=== PATIENT | female | born 1960 | race Caucasian/White ===

== ENCOUNTER 2016-06-16 10:02 | Emergency (ER) | payer OTHER ==
--- NOTE | 2016-06-16 11:22 | DIAGNOSTIC IMAGING REPORT ---
PROCEDURE: XR CHEST 1 VIEW INDICATION: CHEST PAIN TECHNIQUE: Single view chest. 1057 hours COMPARISON: None FINDINGS: Cardiomediastinal contour and central vessels are normal. Clear lungs. No effusions or pneumothorax. Intact osseous structures. Surgical clips in the gallbladder fossa. IMPRESSION: 1. No evidence of acute cardiopulmonary disease.
--- NOTE | 2016-06-16 14:49 | ED NURSING NOTES ---
Clinical Report - Nurses [facility] [address] [place] [address] 06/16/2016 10:03 [id number] TRI[facility] Triage time 10:09. Acuity: LEVEL 3. Chief Complaint: CHEST PAIN. 10:17 06/16/16. Alert. No acute distress. SEPSIS SCREEN: Sepsis Screen. Negative (no infection suspected/documented). Temperature not greater than 38.3 degrees C (101 degrees F). Heart rate not greater than 90. Respiratory rate not greater than 20. SEAN COMA SCORE: [place] Coma Scale: 15- eyes open spontaneously (4); best verbal response- oriented x 4 (5); best motor response- obeys commands (6). --10:17 Leatha Rios R.N. 10:10 06/16/16. BP: 127/92. HR: 76. RR: 18. O2 saturation: 100% on room air. Temp: 97.8 F (oral). Pain level now 8/10. --10:17 Leatha Rios R.N. Acuity: LEVEL 2. --10:18 Leatha Rios R.N. Weight: 61.2 kg stated. Height/Length: 61 inches Per Patient. BMI: 25.5. --10:12 Leatha Rios R.N. Medications Magnesium Oral. --10:13 Leatha Rios R.N. D3 Adult Oral. --10:13 Leatha Rios R.N. Lasix Oral. --10:13 Leatha Rios R.N. Spironolactone Oral. --10:13 Leatha Rios R.N. Allergies No Known Drug Allergy. --10:13 Leatha Rios R.N. Medication/allergy information source: the patient. --10:17 Leatha Rios R.N. History Arrived by private vehicle. Historian: patient. Accompanied by friend. Primary physician (elo ([facility])). ( C/O chest pain, left arm pain, esophogus pain x2 days. LUQ abd pain x1 month. End stage liver disease). Onset. (2 days ago). Treatment TOWER ERECTOR: None. SOCIAL HX: Former smoker, end date 2013. Alcohol use. Patient is a recovering alcoholic. (11/08/2012). History of drug use: marijuana. FALL RISK ASSESSMENT: Fall risk assessment completed. No fall risk identified. NUTRITIONAL RISK ASSESSMENT: The nutritional risk assessment revealed no deficiencies. FUNCTIONAL ASSESSMENT: Functional assessment: no impairments noted. LEARNING NEEDS ASSESSMENT: The learning needs assessment revealed no barriers. SKIN INTEGRITY ASSESSMENT: Skin integrity risk assessment completed. No skin integrity risk identified. --10:17 Leatha Rios R.N. PROBLEMS: Esophageal Varices. Liver failure. --10:15 Leatha Rios R.N. ADDITIONAL SURGERIES: Cholecystectomy. --10:15 Leatha Rios R.N. Interventions ID band on patient. To treatment room. --10:17 Leatha Rios R.N. PHYSICAL ASSESSMENT 10:17 06/16/16. Ambulatory to room. GENERAL / NEURO / PSYCH: Alert. Oriented X 4. Appears in no acute distress. RESPIRATORY: Respirations not labored. CVS: Capillary refill less than 2 seconds. GI / : Abdomen soft. EXTREMITIES: No lower extremity edema. SKIN: Skin is warm and dry. Skin is non-tender. --10:17 Leatha Rios R.N. NURSING PROGRESS NOTES 10:18 06/16/16. The plan of care for this patient has been created. ekg monitor, pulse oximeter and NIBP monitor placed on patient. Patient gowned. Head of bed elevated. Call light placed in reach. Side rails up x 2. Bed placed in lowest position. Brakes of bed on. Patient ready for evaluation- chart flagged. --10:18 Leatha Rios R.N. 10:28 06/16/2016 Site #1 started via IV in the right antecubital space with an 20g angiocath, with aseptic technique and good blood return; one attempt. Blood drawn: rainbow set. Labeled in the presence of the patient and sent to the lab. Saline lock flushed with 10 mL saline. --10:29 Sonia Gomez R.N. 10:29 06/16/16. ( Provider at the bedside). --10:29 Sonia Gomez R.N. 10:41 06/16/2016 GI COCKTAIL WHITE (Simethicone) PO Oral Suspension 30 mL given. Allergies verified and confirmed 5 rights. --10:41 Leatha Rios R.N. EKG time: (1020). EKG was ordered, performed by a tech and shown to the ED physician. --10:44 Ivonne Regan 10:47 06/16/16. Assisted patient to bathroom, to ambulate and back to bed; tolerated well. --10:47 Leatha Rios R.N. 10:53 06/16/16. Patient ID band checked for patient name and birthdate: patient confirmed. Instructions provided to collect clean catch urine and patient verbalized understanding. Clean catch urine collected with return of yellow-colored clear urine; odor is normal; sample sent to lab for urinalysis, culture and drug screen. Specimen labeled in the presence of the patient. --10:53 Leatha Rios R.N. 10:54 06/16/16. BP: 124/65. HR: 80. RR: 16. O2 saturation: 99%. Pain level now 8/10. --10:54 Leatha Rios R.N. Cardiac rhythm: normal sinus rhythm. --10:54 Leatha Rios R.N. Human Resources Benefits Administrator at bedside. --12:08 Sonia Gomez R.N. Assisted patient to bathroom; tolerated well. --13:04 Sonia Gomez R.N. 14:08 06/16/2016 Morphine IVP 4 mg given over 1 minute(s) via site #1. Allergies verified, confirmed 5 rights and sedative warning given to the patient. IV patency established. IV site checked: no pain, redness, or swelling. IV flushed thoroughly pre- and post-medication administration. IVP given by RN. --14:08 Sonia Gomez R.N. Reassessment after medication administered. She has had no adverse reaction. Overall patient status- she states feels better. --14:56 Maryan Whitney R.N. DISPOSITION / DISCHARGE 14:56 06/16/16. BP: 124/76. HR: 77. RR: 16. O2 saturation: 98%. Temp: 98.1 F. Pain level now 05/17. --15:02 Maryan Whitney R.N. 15:02 06/16/2016 Site #1 removed upon discharge. Catheter intact. Manual pressure and bandaid applied. --15:02 Maryan Whitney R.N. Condition at departure: stable. No learning barriers present. Discharge instructions provided and reviewed with the patient. Reviewed medication(s) side effects, precautions, dosing and course information. Prescription(s) given to the patient. Reviewed referral to family practice for followup. Patient verbalized understanding. Written instructions provided in [place]. The patient was discharged home and accompanied by vertical mill operator. She left the Emergency Department ambulatory and via private vehicle. Human Resources Benefits Administrator driving. Medication list reviewed and validated. --15:02 Maryan Whitney R.N. Departure time: 15:02. --15:02 Maryan Whitney R.N. Locked/Released at 06/16/2016 15:03 by Maryan Whitney R.N.
--- NOTE | 2016-06-16 14:49 | ED ORDER SUMMARY ---
..... Patient: ROBBI KELLY OrderSheet [facility] VisitID: [id number] [place] [address] 55y, F Registration Date/Time: 06/16/2016 ORDER SHEET Weight: 61.2 kg (stated) Allergies: No Known Drug Allergy GENERAL ORDERS: Chest 1V Urgent (10:06/16/2016 Dora Allen) (Ack 10:24 TBergley) (10:57 KWilliams R.N.) Founder And Chief Technical Officer (Continuous) (CP) (10:06/16/2016 Dora Allen) (Ack 10:24 TBergley) (10:25 Berta R.N.) CBC w Diff Urgent (10:06/16/2016 Dora Allen) (Ack 10:24 TBergley) (10:30 Сергей R.N.) CMP Urgent (10:06/16/2016 Dora Allen) (Ack 10:24 TBergley) (10:30 SRoberts R.N.) UA-Culture if indicated Urgent (10:06/16/2016 Dora Allen) (Ack 10:24 TBergley) (10:57 Berta R.N.) PT with INR Urgent (10:06/16/2016 Dora Allen) (Ack 10:24 TBergley) (10:30 Сергей R.N.) Pulse oximeter (10:06/16/2016 Dora Allen) (Ack 10:24 TBergley) (10:25 Berta R.N.) EKG - ER Stat (10:06/16/2016 Dora Allen) (10:23 TBergley) Urine Drug Screen Urgent (10:06/16/2016 Dora Allen) (Ack 10:24 TBergley) (10:57 Berta R.N.) Troponin-I Urgent (10:38 06/16/2016 Dora Allen) (10:39 KWmatt R.N.) - (PO challenge (juice or water)) (14:08 06/16/2016 Dora Allen) (14:09 Сергей Meadows) MEDICATION ORDERS: GI Cocktail WHITE PO 30 mL (NOW) (10:38 06/16/2016 Dora Allen) (10:41 Berta R.NJanell) - (14:08 06/16/2016 Dora Allen) (Ack 14:11 Сергей R.N.) IV FLUIDS: IV Saline Lock (10:22 06/16/2016 Dora Allen) (10:30 Сергей R.N.) Morphine IV 4 mg (once now. may repeat once in 15 minutes for pain > 5/10) (13:44 06/16/2016 Dora Allen) (14:08 Сергей R.N.) ORDER SHEET NOTES: [Electronically signed by Maryan Whitney R.N. (15:03 06/16/2016)] [Electronically signed by Олег Moran Dr. (05:26 06/19/2016)] [Electronically locked/signed by Maryan Whitney R.N. (15:03 06/16/2016)]
--- NOTE | 2016-06-16 14:49 | ED ORDER SUMMARY ---
..... Patient: ROBBI KELLY OrderSheet [facility] VisitID: [id number] [place] [address] 55y, F Registration Date/Time: 06/16/2016 ORDER SHEET Weight: 61.2 kg (stated) Allergies: No Known Drug Allergy GENERAL ORDERS: Chest 1V Urgent (10:06/16/2016 Dora Allen) (Ack 10:24 TBergley) (10:57 KWilliams R.N.) Stump Shooter (Continuous) (CP) (10:06/16/2016 Dora Allen) (Ack 10:24 TBergley) (10:25 Berta R.N.) CBC w Diff Urgent (10:06/16/2016 Dora Allen) (Ack 10:24 TBergley) (10:30 Сергей R.N.) CMP Urgent (10:06/16/2016 Dora Allen) (Ack 10:24 TBergley) (10:30 SRoberts R.N.) UA-Culture if indicated Urgent (10:06/16/2016 Dora Allen) (Ack 10:24 TBergley) (10:57 Berta R.N.) PT with INR Urgent (10:06/16/2016 Dora Allen) (Ack 10:24 TBergley) (10:30 Сергей R.N.) Pulse oximeter (10:06/16/2016 Dora Allen) (Ack 10:24 TBergley) (10:25 Berta R.N.) EKG - ER Stat (10:06/16/2016 Dora Allen) (10:23 TBergley) Urine Drug Screen Urgent (10:06/16/2016 Dora Allen) (Ack 10:24 TBergley) (10:57 Berta R.N.) Troponin-I Urgent (10:38 06/16/2016 Dora Allen) (10:39 KWmatt R.N.) - (PO challenge (juice or water)) (14:08 06/16/2016 Dora Allen) (14:09 Сергей Meadows) MEDICATION ORDERS: GI Cocktail WHITE PO 30 mL (NOW) (10:38 06/16/2016 Dora Allen) (10:41 Berta R.NJanell) - (14:08 06/16/2016 Dora Allen) (Ack 14:11 Сергей R.N.) IV FLUIDS: IV Saline Lock (10:22 06/16/2016 Dora Allen) (10:30 Сергей R.N.) Morphine IV 4 mg (once now. may repeat once in 15 minutes for pain > 5/10) (13:44 06/16/2016 Dora Allen) (14:08 Сергей R.N.) ORDER SHEET NOTES: [Electronically signed by Maryan Whitney R.N. (15:03 06/16/2016)] [Electronically signed by Олег Moran Dr. (05:26 06/19/2016)] [Electronically locked/signed by Maryan Whitney R.N. (15:03 06/16/2016)]
--- NOTE | 2016-06-16 14:49 | ED CLINICAL REPORT ---
Clinical Report - Physicians/Mid Levels [facility] [address] [place] [address] 06/16/2016 10:03 Patient: ROBBI KELLY Time Seen: 1015. Arrived- By private vehicle. Historian- patient. HISTORY OF PRESENT ILLNESS Chief Complaint: ABDOMINAL PAIN. This started past several days and is still present. It was abrupt in onset and has been constant but is not gone now. It is described as sharp and burning and it is described as located in the epigastric area and radiating to the chest. At its maximum, severity described as moderate. Modifying factors. Not worsened by anything. Not relieved by anything. The patient has had nausea, loss of appetite, vomiting and diarrhea. (istory of cirrhosis withmeld score of 13. No new or unusual food. No sick contacts. No recent travel or recent antibiotic use). No recent travel. Similar symptoms previously: None. Recent medical care: Not recently seen/assessed. REVIEW OF SYSTEMS No difficulty with urination, fever, difficulty breathing, skin rash or chills. All systems otherwise negative, except as recorded above. PAST HISTORY See nurses notes. Medications: Spironolactone Oral. Lasix Oral. D3 Adult Oral. Magnesium Oral. Allergies: No Known Drug Allergy. SOCIAL HISTORY Never smoker. Alcohol use. (recovering alcoholic). No drug use. No recent travel. Is a local resident. ADDITIONAL NOTES The nursing notes have been reviewed. PHYSICAL EXAM Vital Signs: 06/16/2016 10:10 BP: 127/92. HR: 76. RR: 18. O2 saturation: 100%. Temp: 97.8 F. Oxygen saturation normal. Appearance: Alert. Oriented X3. Patient in mild distress. Eyes: Pupils equal, round and reactive to light. Mild scleral icterus. Eyes normal inspection. ENT: Ears normal. Nose normal. Pharynx normal. Neck: Normal inspection. Neck supple. CVS: Normal heart rate and rhythm. Heart sounds normal. Pulses normal. Respiratory: No respiratory distress. Breath sounds normal. Chest nontender. No rales, rhonchi or wheezes. Abdomen: Soft and nontender. (hyperactive bowel sounds. Negative Melton's. No tenderness at McBurney's. No rebound or guarding). Skin: Skin warm and dry. Normal skin color. No rash. Normal skin turgor. Extremities: Extremities exhibit normal ROM. No lower extremity edema. Neuro: Oriented X 3. No motor deficit. No sensory deficit. LABS, X-RAYS, AND EKG EKG: No acute ischemia. Normal sinus rhythm. Rate: 78. Normal P waves. Normal NISHA. Normal QRS complex. Normal axis. Normal ST and T waves, QT and QTc. Prolonged QTc (494). Prior EKG unavailable. The study has been interpreted contemporaneously. The study has been independently viewed by me. The EKG appears to be a good tracing. Chest X-ray: (PROCEDURE: XR CHEST 1 VIEW INDICATION: CHEST PAIN TECHNIQUE: Single view chest. 1057 hours COMPARISON: None FINDINGS: Cardiomediastinal contour and central vessels are normal. Clear lungs. No effusions or pneumothorax. Intact osseous structures. Surgical clips in the gallbladder fossa. IMPRESSION: 1. No evidence of acute cardiopulmonary disease). Views: PA. The X-rays were independently viewed by me and interpreted by the radiologist. The X-rays were discussed with the radiologist (via pacs). Laboratory Tests: UA-Culture if indicated: (ANA MARÍA: 06/16/2016 10:45) ( MsgRcvd 06/16/2016 11:22) Final results Test Result Flag Units (Reference) URINE COLOR YELLOW URINE APPEARANCE CLEAR URINE GLUCOSE NEGATIVE (NEGATIVE) URINE BILIRUBIN NEGATIVE (NEGATIVE) URINE KETONE NEGATIVE (NEGATIVE) URINE SPECIFIC GRAVITY 1.010 (1.010-1.030) URINE PH 5.5 (5.0-8.0) URINE PROTEIN NEGATIVE (NEGATIVE) URINE UROBILINOGEN 1.0 EU/dL (0.2-1.0) URINE NITRITE NEGATIVE (NEGATIVE) URINE BLOOD NEGATIVE (NEGATIVE) URINE LEUK ESTERASE NEGATIVE (NEGATIVE) URINE RBC NONE SEEN rbc/hpf (0-1) URINE WBC 0-1 wbc/hpf (0-1) URINE EPITHELIAL CELLS 0-1 EPI/hpf (0-5) URINE BACTERIA NONE SEEN (NONE SEEN) URINE COMMENT CULT NOT INDICATED URINE CULTURES ARE SET-UP BASED ON THE FOLLOWING CRITERIA:POSITIVE NITRITEPOSITIVE LEUKOCYTE ESTERASEGREATER THAN 10 WHITE BLOOD CELLSMODERATE (2+) OR GREATER BACTERIA CBC w Diff: (ANA MARÍA: 06/16/2016 10:28) ( [facility] 06/16/2016 10:46) Final results Test Result Flag Units (Reference) WHITE BLOOD COUNT 9.7 K/uL (4.5-11.5) RED BLOOD COUNT 4.69 M/uL (4.00-5.20) HEMOGLOBIN 15.1 gm/dL (12.0-16.0) HEMATOCRIT 45.1 % (36.0-46.0) MEAN CELL VOLUME 96 fL (80-100) MEAN CORPUSCULAR HGB 32 pg (26-34) MEAN CORPUSCULAR HGB CONC 33 g/dL (31-37) RED CELL DISTRIBUTION WIDTH 15.6 H % (11.6-14.8) PLATELET COUNT 119 L K/uL (150-400) NEUTROPHIL % 52.3 % (50-75) LYMPH % 28.0 % (25-40) MONO % 15.6 H % (3-14) EOSINOPHIL % 3.3 % (0-4) BASOPHIL % 0.8 % (0-2) PT with INR: (ANA MARÍA: 06/16/2016 10:28) ( [facility] 06/16/2016 11:04) Final results Test Result Flag Units (Reference) INR 1.1 (0.8-1.2) Low Intensity Therapy: INR 1.5-2.0 PT range 18.5-23.1Mod.Intensity Therapy: INR 2.0-3.0 PT range 23.1-31.5High Intensity Therapy: INR 2.5-3.5 PT range 27.4-35.5High Intensity Therapy 2: INR 3.0-4.0 PT range 31.5-39.3 Urine Drug Screen: (ANA MARÍA: 06/16/2016 10:45) ( [facility] 06/16/2016 11:13) Final results Test Result Flag Units (Reference) AMPHETAMINE/METHAMPHETAMINE NEGATIVE (NEGATIVE) BARBITURATE NEGATIVE (NEGATIVE) BENZODIAZEPINE NEGATIVE (NEGATIVE) CANNABINOID POSITIVE H (NEGATIVE) COCAINE NEGATIVE (NEGATIVE) ECSTASY NEGATIVE (NEGATIVE) METHADONE NEGATIVE (NEGATIVE) OPIATE NEGATIVE (NEGATIVE) The urine drug screen is a qualitative screening test fordrug overdose and abuse. All screen results should beconsidered as presumptive.Drugs screened for are as follows:BenzodiazepinesCocaineAmphetamines/MetamphetaminesTHC (Tetrahydrocannabinol)OpiatesBarbituratesEcstasyMethadonePositive results are unconfirmed. For confirmation, notifythe lab for the specimen to be sent to the reference lab.All confirmations must be performed by a differentmethodology.The ingestion of natural herbal and plant productscontaining Ephedra/Ephedra metabolites can produce in urineone or more substances capable of cross reacting withamphetamine/methamphetamine immunoassays. These testsprovide a preliminary result only. A more specificalternative chemical method must be used to obtain aconfirmed analytical result. CMP: (ANA MARÍA: 06/16/2016 10:28) ( MsgRcvd 06/16/2016 11:12) Final results Test Result Flag Units (Reference) GLUCOSE 91 mg/dL (70-110) BUN 9 mg/dL (7-18) CREATININE 0.8 mg/dL (0.6-1.3) Estimated GFR >60 mL/min Estimated GFR- >60 mL/min Note: Persistent reduction over 3 months in eGFR<60 mL/min/1.73 m2 defines CKD. Patients with eGFR values>=60 mL/min/1.73 m2 may also have CKD if evidence ofpersistent proteinuria. Additional information may be foundat www.kidney.org. SODIUM 137 mmol/L (136-145) POTASSIUM 3.3 L mmol/L (3.5-5.1) CHLORIDE 100 mmol/L (98-107) CARBON DIOXIDE 24 mmol/L (21-32) CALCIUM 9.5 mg/dL (8.5-10.1) TOTAL PROTEIN 7.1 g/dL (6.4-8.2) ALBUMIN 3.2 L g/dL (3.3-5.0) BILIRUBIN, TOTAL 2.8 H mg/dL (0.0-1.0) ALKALINE PHOSPHATASE 216 H U/L (46-116) AST (SGOT) 61 H U/L (15-37) ALT (SGPT) 37 U/L (12-78) TROPONIN I <0.05 L ng/mL (0.00-1.5) TROPONIN REFERENCE RANGE:<0.1 NEGATIVE0.1-1.5 INDETERMINANT>1.5 POSITIVE . PROGRESS AND PROCEDURES Course of Care: the patient is a pleasant 55 her old female with past medical history significant for alcohol-induced cirrhosis presented for a vaginal epigastric abdominal pain. Patient is resting in bed and in a mild amount of distress however does not appear toxic. Differential diagnosis at this time includes acute bronchitis, urinary tract infection, gastritis, or biliary colic. Patient will be evaluated with laboratory studieshere in the emergency department as well as given a GI cocktail for symptoms that are potentiallyreflux in nature. Patient is agreeable to treatment plan. Patient's workup is unremarkable for any acute abnormalities. Patient with chronic liver disease and laboratory studies consistent with this. INR is noted to be normal at 1.1. Patient's meld score was calculated. Patient with improved meld score. reports MELD score of 13 recently. Is 11 today. Because the patient's improved symptoms while here in the emergency department and passing a by mouth challenge, do not fill patient is admitted to the hospital or require further emergency department workup/evaluation. Patient is currently resting in bed and in no acute distress. Head discussion with the patient as well as her friend who is at the bedside per patient's request in regards to her workup here in the emergency department couldn't diagnosis, home care, follow-up, and return precautions. All questions have been answered. The patient expressed understanding of these instructions and was agreeable to them. Of note, do not feel imaging is warranted at this time. Patient is resting in bed and in no acute distress. No acute findings noted on patient's laboratory workup and abdominal exam is noted to be unremarkable. Don't feel patient has a surgical abdomen. Disposition: Discharged. Condition: good. CLINICAL IMPRESSION Acute epigastric abdominal pain. Moderate nausea with vomiting. Atypical chest pain .12 lead EKG performed. Hypokalemia (acute mild). INSTRUCTIONS Warnings: GENERAL WARNINGS: Return or contact your physician immediately if your condition worsens or changes unexpectedly, if not improving as expected, or if other problems arise. SPECIFICALLY, return if you develop pain, fever, vomiting, the inability to keep fluids down, blood in vomitus, blood in diarrhea, fainting or lightheadedness. Your Current Medications: CONTINUE TAKING THE FOLLOWING MEDICATIONS: D3 Adult Oral. Lasix Oral. Magnesium Oral. Spironolactone Oral. Prescription Medications: Zofran (orally disintegrating tablets) 4 mg: take 1 orally every 8 hours as needed for nausea and vomiting. Dispense ten (10). No refill. Substitution is permissible. Oxycodone 5 mg tablets: take 1 orally every 6 hours as needed for pain. Dispense fifteen (15). No refill. Potassium Chloride 20 mEq: take 1 orally every 12 hours - Dispense thirty (30) No refills. Follow-up: Return to the emergency department as needed. Follow up with your doctor in three days. Reason for referral: recheck today's concerns. Summary of care provided to patient via paper. Screening today revealed the patient's blood pressure to be in the normal range. The patient should follow up with a primary care provider for blood pressure management. Understanding of the discharge instructions verbalized by patient. (Electronically signed by Олег Moran Dr. 06/19/2016 5:26)
--- NOTE | 2016-06-16 14:49 | ED NURSING NOTES ---
Clinical Report - Nurses Formerly [facility] [address] [place] [address] 06/16/2016 10:03 [id number] TRI[facility] Triage time 10:09. Acuity: LEVEL 3. Chief Complaint: CHEST PAIN. 10:17 06/16/16. Alert. No acute distress. SEPSIS SCREEN: Sepsis Screen. Negative (no infection suspected/documented). Temperature not greater than 38.3 degrees C (101 degrees F). Heart rate not greater than 90. Respiratory rate not greater than 20. SEAN COMA SCORE: [place]ork Coma Scale: 15- eyes open spontaneously (4); best verbal response- oriented x 4 (5); best motor response- obeys commands (6). --10:17 Leatha Rios R.N. 10:10 06/16/16. BP: 127/92. HR: 76. RR: 18. O2 saturation: 100% on room air. Temp: 97.8 F (oral). Pain level now 8/10. --10:17 Leatha Rios R.N. Acuity: LEVEL 2. --10:18 Leatha Rios R.N. Weight: 61.2 kg stated. Height/Length: 61 inches Per Patient. BMI: 25.5. --10:12 Leatha Rios R.N. Medications Magnesium Oral. --10:13 Leatha Rios R.N. D3 Adult Oral. --10:13 Leatha Rios R.N. Lasix Oral. --10:13 Leatha Rios R.N. Spironolactone Oral. --10:13 Leatha Rios R.N. Allergies No Known Drug Allergy. --10:13 Leatha Rios R.N. Medication/allergy information source: the patient. --10:17 Leatha Rios R.N. History Arrived by private vehicle. Historian: patient. Accompanied by friend. Primary physician (elo ([facility])). ( C/O chest pain, left arm pain, esophogus pain x2 days. LUQ abd pain x1 month. End stage liver disease). Onset. (2 days ago). Treatment SOLE TACKER: None. SOCIAL HX: Former smoker, end date 2013. Alcohol use. Patient is a recovering alcoholic. (11/08/2012). History of drug use: marijuana. FALL RISK ASSESSMENT: Fall risk assessment completed. No fall risk identified. NUTRITIONAL RISK ASSESSMENT: The nutritional risk assessment revealed no deficiencies. FUNCTIONAL ASSESSMENT: Functional assessment: no impairments noted. LEARNING NEEDS ASSESSMENT: The learning needs assessment revealed no barriers. SKIN INTEGRITY ASSESSMENT: Skin integrity risk assessment completed. No skin integrity risk identified. --10:17 Leatha Rios R.N. PROBLEMS: Esophageal Varices. Liver failure. --10:15 Leatha Rios R.N. ADDITIONAL SURGERIES: Cholecystectomy. --10:15 Leatha Rios R.N. Interventions ID band on patient. To treatment room. --10:17 Leatha Rios R.N. PHYSICAL ASSESSMENT 10:17 06/16/16. Ambulatory to room. GENERAL / NEURO / PSYCH: Alert. Oriented X 4. Appears in no acute distress. RESPIRATORY: Respirations not labored. CVS: Capillary refill less than 2 seconds. GI / : Abdomen soft. EXTREMITIES: No lower extremity edema. SKIN: Skin is warm and dry. Skin is non-tender. --10:17 Leatha Rios R.N. NURSING PROGRESS NOTES 10:18 06/16/16. The plan of care for this patient has been created. security monitor, pulse oximeter and NIBP monitor placed on patient. Patient gowned. Head of bed elevated. Call light placed in reach. Side rails up x 2. Bed placed in lowest position. Brakes of bed on. Patient ready for evaluation- chart flagged. --10:18 Leatha Rios R.N. 10:28 06/16/2016 Site #1 started via IV in the right antecubital space with an 20g angiocath, with aseptic technique and good blood return; one attempt. Blood drawn: rainbow set. Labeled in the presence of the patient and sent to the lab. Saline lock flushed with 10 mL saline. --10:29 Sonia Gomez R.N. 10:29 06/16/16. ( Provider at the bedside). --10:29 Sonia Gomez R.N. 10:41 06/16/2016 GI COCKTAIL WHITE (Simethicone) PO Oral Suspension 30 mL given. Allergies verified and confirmed 5 rights. --10:41 Leatha Rios R.N. EKG time: (1020). EKG was ordered, performed by a tech and shown to the ED physician. --10:44 Ivonne Regan 10:47 06/16/16. Assisted patient to bathroom, to ambulate and back to bed; tolerated well. --10:47 Leatha Rios R.N. 10:53 06/16/16. Patient ID band checked for patient name and birthdate: patient confirmed. Instructions provided to collect clean catch urine and patient verbalized understanding. Clean catch urine collected with return of yellow-colored clear urine; odor is normal; sample sent to lab for urinalysis, culture and drug screen. Specimen labeled in the presence of the patient. --10:53 Leatha Rios R.N. 10:54 06/16/16. BP: 124/65. HR: 80. RR: 16. O2 saturation: 99%. Pain level now 8/10. --10:54 Leatha Rios R.N. Cardiac rhythm: normal sinus rhythm. --10:54 Leatha Rios R.N. Edge Bander Operator at bedside. --12:08 Sonia Gomez R.N. Assisted patient to bathroom; tolerated well. --13:04 Sonia Gomez R.N. 14:08 06/16/2016 Morphine IVP 4 mg given over 1 minute(s) via site #1. Allergies verified, confirmed 5 rights and sedative warning given to the patient. IV patency established. IV site checked: no pain, redness, or swelling. IV flushed thoroughly pre- and post-medication administration. IVP given by RN. --14:08 Sonia Gomez R.N. Reassessment after medication administered. She has had no adverse reaction. Overall patient status- she states feels better. --14:56 Maryan Whitney R.N. DISPOSITION / DISCHARGE 14:56 06/16/16. BP: 124/76. HR: 77. RR: 16. O2 saturation: 98%. Temp: 98.1 F. Pain level now 05/17. --15:02 Maryan Whitney R.N. 15:02 06/16/2016 Site #1 removed upon discharge. Catheter intact. Manual pressure and bandaid applied. --15:02 Maryan Whitney R.N. Condition at departure: stable. No learning barriers present. Discharge instructions provided and reviewed with the patient. Reviewed medication(s) side effects, precautions, dosing and course information. Prescription(s) given to the patient. Reviewed referral to family practice for followup. Patient verbalized understanding. Written instructions provided in Mozambican. The patient was discharged home and accompanied by computer customer support specialist. She left the Emergency Department ambulatory and via private vehicle. Edge Bander Operator driving. Medication list reviewed and validated. --15:02 Maryan Whitney R.N. Departure time: 15:02. --15:02 Maryan Whitney R.N. Locked/Released at 06/16/2016 15:03 by Maryan Whitney R.N.
--- NOTE | 2016-06-19 05:26 | ED MAR SUMMARY ---
..... Medication Administration Record [facility] [address] [place] [address] Patient: ROBBI KELLY Visit ID: [id number] 55y, F Weight: 61.2 kg Height/Length: 61 in BMI: 25.5 ALLERGIES: No Known Drug Allergy Given 10:41 06/16/2016 Leatha Rios RJanellNJanell Medication Administered: GI COCKTAIL WHITE [PO] (SIMETHICONE), Dose: 30 mL Oral Suspension PO. Medication Ordered: GI Cocktail WHITE PO 30 mL (NOW). Given 14:08 06/16/2016 Sonia Gomez RSherrell Medication Administered: MORPHINE [IVP], Dose: 4 mg IVP over 1 minute(s), Site: #1 right AC. Medication Ordered: Morphine IV 4 mg (once now. may repeat once in 15 minutes for pain > 5/10).
--- NOTE | 2016-06-19 05:26 | ED DISCHARGE INSTRUCTIONS ---
Patient: ROBBI KELLY General Instructions [facility] VisitID: [id number] [place] [address] 55y, F Registration Date/Time: 06/16/2016 Acute epigastric abdominal pain. Moderate nausea with vomiting. Atypical chest pain .12 lead EKG performed. Hypokalemia (acute mild). INSTRUCTIONS Warnings: GENERAL WARNINGS: Return or contact your physician immediately if your condition worsens or changes unexpectedly, if not improving as expected, or if other problems arise. SPECIFICALLY, return if you develop pain, fever, vomiting, the inability to keep fluids down, blood in vomitus, blood in diarrhea, fainting or lightheadedness. Your Current Medications: CONTINUE TAKING THE FOLLOWING MEDICATIONS: D3 Adult Oral. Lasix Oral. Magnesium Oral. Spironolactone Oral. Prescription Medications: Zofran (orally disintegrating tablets) 4 mg: take 1 orally every 8 hours as needed for nausea and vomiting. Dispense ten (10). No refill. Substitution is permissible. Oxycodone 5 mg tablets: take 1 orally every 6 hours as needed for pain. Dispense fifteen (15). No refill. Potassium Chloride 20 mEq: take 1 orally every 12 hours - Dispense thirty (30) No refills. Follow-up: Return to the emergency department as needed. Follow up with your doctor in three days. Reason for referral: recheck today's concerns. Summary of care provided to patient via paper. Screening today revealed the patient's blood pressure to be in the normal range. The patient should follow up with a primary care provider for blood pressure management. Understanding of the discharge instructions verbalized by patient. ADDITIONAL INFORMATION Abdominal Pain, Unknown Cause (Female) The exact cause of your abdominal (stomach) pain is not certain. This does not mean that this is something to worry about, or the right tests were not done. Everyone likes to know the exact cause of the problem, but sometimes with abdominal pain, there is no clear-cut cause, and this could be a good thing. The good news is that your symptoms can be treated, and you will feel better. Your condition does not seem serious now; however, sometimes the signs of a serious problem may take more time to appear. For this reason,it is important for you to watch for any new symptoms, problems,or worsening of your condition. Over the next few days, the abdominal pain may come and go, or be continuous. Other common symptoms can include nausea and vomiting. Sometimes it can be difficult to tell if you feel nauseous, you may just feel bad and not associate that feeling with nausea. Constipation, diarrhea, and a fever may go along with the pain. The pain may continue even if treated correctly over the following days. Depending on how things go, sometimes the cause can become clear and may require further or different treatment. Additional evaluations, medications, or tests may be needed. Home care Your health care provider may prescribe medications for pain, symptoms, or an infection. Follow the health care provider's instructions for taking these medications. General care Rest until your next exam. No strenuous activities. Try to find positions that ease discomfort. A small pillow placed on the abdomen may help relieve pain. Something warm on your abdomen (such as a heating pad) may help, but be careful not to burn yourself. Diet Do not force yourself to eat, especially if having cramps, vomiting, or diarrhea. Water is important so you do not get dehydrated. Soup may also be good. Sports drinks may also help, especially if they are not too acidic. Make sure you don't drink sugary drinks as this can make things worse. Take liquids in small amounts. Do not guzzle them. Caffeine sometimes makes the pain and cramping worse. Avoid dairy products if you have vomiting or diarrhea. Don't eat large amounts at a time. Wait a few minutes between bites. Eat a diet low in fiber (called a low-residue diet). Foods allowed include refined breads, white rice, fruit and vegetable juices without pulp, tender meats. These foods will pass more easily through the intestine. Avoid whole-grain foods, whole fruits and vegetables, meats, seeds and nuts, fried or fatty foods, dairy, alcohol and spicy foods until your symptoms go away. Follow-up care Follow up with your health care provider as instructed, or if your pain does not begin to improve in the next 24 hours. When to seek medical care Seek prompt medical care if any of the following occur: Pain gets worse or moves to the right lower abdomen New or worsening vomiting or diarrhea Swelling of the abdomen Unable to pass stool for more than three days Fever of 100.4F (38C) or higher, or as directed by your healthcare provider. Blood in vomit or bowel movements (dark red or black color) Jaundice (yellow color of eyes and skin) Weakness, dizziness Chest, arm, back, neck or jaw pain Unexpected vaginal bleeding or missed period Call 911 Call emergency services if any of the following occur: Trouble breathing Confusion Fainting or loss of consciousness Rapid heart rate Seizure Chest Pain, Uncertain Cause Chest pain can happen for a number of reasons. Sometimes the cause can not be determined. If yourcondition does not seem serious, and your pain does not appear to be coming from your heart, your doctor may recommend watching it closely. Sometimes the signs of a serious problem take more time to appear. Therefore, watch for the warning signs listed below. Home care After your visit, follow these recommendations: Rest today and avoid strenuous activity. Take any prescribed medicine as directed. Follow-up care Follow up with your doctor or this facility as instructed or if you do not start to feel better within 24 hours. Call 911 Get immediate medical attention if any of the following occur: A change in the type of pain: if it feels different, becomes more severe, lasts longer, or begins to spread into your shoulder, arm, neck, jaw or back Shortness of breath or increased pain with breathing Weakness, dizziness, or fainting Rapid heart beat Get prompt medical attention Call your doctor right away if any of the following occur: Cough with dark colored sputum (phlegm) or blood Fever of 100.4F(38C) or higher, or as directed by your health care provider Swelling, pain or redness in one leg Hypokalemia Hypokalemia means a low level of potassium in the blood. This most often occurs in patients who take diuretics (water pills). It can also occur due to severe vomiting or diarrhea. A mild case usually causes no symptoms. It is only found with blood testing. More severe potassium loss causes generalized weakness, muscle or abdominal cramping, heart palpitations (rapid or irregular heartbeats) and low blood pressure. Home Care: 1) Take any potassium supplements prescribed. 2) Eat foods rich in potassium. The highest amount is found in artichoke, baked potatoes, spinach, cantaloupe, honeydew melon, cod, halibut, salmon, and scallops. White, red, or navas beans are also very good sources. A modest amount is found in orange juice, bananas, carrots, and tomato juice. 3) Certain types of diuretics (water pills), such as Lasix (furosemide), require that you take potassium supplements for as long as you take the diuretic pills. If you are taking a diuretic, discuss the need for potassium supplements with your doctor. Follow Up with your doctor for a repeat blood test within the next week or as advised by our staff. Get Prompt Medical Attention if any of the following occur: -- Increased weakness -- Feeling dizzy -- Irregular heartbeat, extra beats or very fast heart rate -- Fainting spell Ondansetron Oral disintegrating tablet What is this medicine? ONDANSETRON (on ETHEL se harsh) is used to treat nausea and vomiting caused by chemotherapy. It is also used to prevent or treat nausea and vomiting after surgery. How should I use this medicine? These tablets are made to dissolve in the mouth. Do not try to push the tablet through the foil backing. With dry hands, peel away the foil backing and gently remove the tablet. Place the tablet in the mouth and allow it to dissolve, then swallow. While you may take these tablets with water, it is not necessary to do so. Talk to your customer service specialist regarding the use of this medicine in children. Special care may be needed. What side effects may I notice from receiving this medicine? Side effects that you should report to your doctor or health acute care certified nursing assistant as soon as possible: allergic reactions like skin rash, itching or hives, swelling of the face, lips, or tongue breathing problems dizziness fast or irregular heartbeat feeling faint or lightheaded, falls fever and chills swelling of the hands and feet tightness in the chest Side effects that usually do not require medical attention (report to your doctor or health acute care certified nursing assistant if they continue or are bothersome): constipation or diarrhea headache What may interact with this medicine? Do not take this medicine with any of the following medications: -apomorphine -cisapride -dofetilide -dronedarone -pimozide -thioridazine -ziprasidone This medicine may also interact with the following medications: -carbamazepine -phenytoin -rifampicin -tramadol -other medicines that prolong the QT interval (cause an abnormal heart rhythm) What if I miss a dose? If you miss a dose, take it as soon as you can. If it is almost time for your next dose, take only that dose. Do not take double or extra doses. Where should I keep my medicine? Keep out of the reach of children. Store between 2 and 30 degrees C (36 and 86 degrees F). Throw away any unused medicine after the expiration date. What should I tell my health care provider before I take this medicine? They need to know if you have any of these conditions: heart disease history of irregular heartbeat liver disease low levels of magnesium or potassium in the blood an unusual or allergic reaction to ondansetron, granisetron, other medicines, foods, dyes, or preservatives or trying to get breast-feeding What should I watch for while using this medicine? Check with your doctor or health acute care certified nursing assistant as soon as you can if you have any sign of an allergic reaction. Oxycodone Hydrochloride, Acetaminophen Oral tablet What is this medicine? ACETAMINOPHEN; OXYCODONE (a set a JULIO matias fen; ox i KOE done) is a pain reliever. It is used to treat mild to moderate pain. How should I use this medicine? Take this medicine by mouth with a full glass of water. Follow the directions on the prescription label. Take your medicine at regular intervals. Do not take your medicine more often than directed. Talk to your customer service specialist regarding the use of this medicine in children. Special care may be needed. Patients over 65 years old may have a stronger reaction and need a smaller dose. What side effects may I notice from receiving this medicine? Side effects that you should report to your doctor or health acute care certified nursing assistant as soon as possible: allergic reactions like skin rash, itching or hives, swelling of the face, lips, or tongue breathing difficulties, wheezing confusion light headedness or fainting spells severe stomach pain yellowing of the skin or the whites of the eyes Side effects that usually do not require medical attention (report to your doctor or health acute care certified nursing assistant if they continue or are bothersome): dizziness drowsiness nausea vomiting What may interact with this medicine? alcohol antihistamines barbiturates like amobarbital, butalbital, butabarbital, methohexital, pentobarbital, phenobarbital, thiopental, and secobarbital benztropine drugs for bladder problems like solifenacin, trospium, oxybutynin, tolterodine, hyoscyamine, and methscopolamine drugs for breathing problems like ipratropium and tiotropium drugs for certain stomach or intestine problems like propantheline, homatropine methylbromide, glycopyrrolate, atropine, belladonna, and dicyclomine general anesthetics like etomidate, ketamine, nitrous oxide, propofol, desflurane, enflurane, halothane, isoflurane, and sevoflurane medicines for depression, anxiety, or psychotic disturbances medicines for sleep muscle relaxants naltrexone narcotic medicines (opiates) for pain phenothiazines like perphenazine, thioridazine, chlorpromazine, mesoridazine, fluphenazine, prochlorperazine, promazine, and trifluoperazine scopolamine tramadol trihexyphenidyl What if I miss a dose? If you miss a dose, take it as soon as you can. If it is almost time for your next dose, take only that dose. Do not take double or extra doses. Where should I keep my medicine? Keep out of the reach of children. This medicine can be abused. Keep your medicine in a safe place to protect it from theft. Do not share this medicine with anyone. Selling or giving away this medicine is dangerous and against the law. Store at room temperature between 20 and 25 degrees C (68 and 77 degrees F). Keep container tightly closed. Protect from light. This medicine may cause accidental overdose and if it is taken by other adults, children, or pets. Flush any unused medicine down the toilet to reduce the chance of harm. Do not use the medicine after the expiration date. What should I tell my health care provider before I take this medicine? They need to know if you have any of these conditions: brain tumor Crohn's disease, inflammatory bowel disease, or ulcerative colitis drink more than 3 alcohol containing drinks per day drug abuse or addiction head injury heart or circulation problems kidney disease or problems going to the bathroom liver disease lung disease, asthma, or breathing problems an unusual or allergic reaction to acetaminophen, oxycodone, other opioid analgesics, other medicines, foods, dyes, or preservatives or trying to get breast-feeding What should I watch for while using this medicine? Tell your doctor or health acute care certified nursing assistant if your pain does not go away, if it gets worse, or if you have new or a different type of pain. You may develop tolerance to the medicine. Tolerance means that you will need a higher dose of the medication for pain relief. Tolerance is normal and is expected if you take this medicine for a long time. Do not suddenly stop taking your medicine because you may develop a severe reaction. Your body becomes used to the medicine. This does NOT mean you are addicted. Addiction is a behavior related to getting and using a drug for a non-medical reason. If you have pain, you have a medical reason to take pain medicine. Your doctor will tell you how much medicine to take. If your doctor wants you to stop the medicine, the dose will be slowly lowered over time to avoid any side effects. You may get drowsy or dizzy. Do not drive, use machinery, or do anything that needs mental alertness until you know how this medicine affects you. Do not stand or sit up quickly, especially if you are an older patient. This reduces the risk of dizzy or fainting spells. Alcohol may interfere with the effect of this medicine. Avoid alcoholic drinks. There are different types of narcotic medicines (opiates) for pain. If you take more than one type at the same time, you may have more side effects. Give your health care provider a list of all medicines you use. Your doctor will tell you how much medicine to take. Do not take more medicine than directed. Call emergency for help if you have problems breathing. The medicine will cause constipation. Try to have a bowel movement at least every 2 to 3 days. If you do not have a bowel movement for 3 days, call your doctor or health acute care certified nursing assistant. Do not take Tylenol (acetaminophen) or medicines that have acetaminophen with this medicine. Too much acetaminophen can be very dangerous. Many nonprescription medicines contain acetaminophen. Always read the labels carefully to avoid taking more acetaminophen. You have been given the following additional information: Abdominal Pain, Unknown Cause, (Female) Chest Pain, Uncertain Cause Hypokalemia Ondansetron Oral disintegrating tablet Oxycodone Hydrochloride, Acetaminophen Oral tablet (Electronically signed by Олег Moran Dr. 06/19/2016 5:26)
--- NOTE | 2016-06-19 05:26 | ED MAR SUMMARY ---
..... Medication Administration Record [facility] [address] [place] [address] Patient: ROBBI KELLY Visit ID: [id number] 55y, F Weight: 61.2 kg Height/Length: 61 in BMI: 25.5 ALLERGIES: No Known Drug Allergy Given 10:41 06/16/2016 Leatha Rios RJanellNJanell Medication Administered: GI COCKTAIL WHITE [PO] (SIMETHICONE), Dose: 30 mL Oral Suspension PO. Medication Ordered: GI Cocktail WHITE PO 30 mL (NOW). Given 14:08 06/16/2016 Sonia Gomez RSherrell Medication Administered: MORPHINE [IVP], Dose: 4 mg IVP over 1 minute(s), Site: #1 right AC. Medication Ordered: Morphine IV 4 mg (once now. may repeat once in 15 minutes for pain > 5/10).
--- NOTE | 2016-06-19 05:26 | ED MED RECONCILIATION SUMMARY ---
Patient: ROBBI KELLY Medication Reconciliation Report [facility] VisitID: [id number] [address] [place] [address] 55y, F Registration Date/Time: 06/16/2016 Weight: 61.2 kg Height/Length: 61 in. BMI: 25.5 ALLERGIES: No Known Drug Allergy The patient's Home Medications are listed below: CONTINUE TAKING THE FOLLOWING MEDICATIONS: D3 Adult Oral Lasix Oral Magnesium Oral Spironolactone Oral The source(s) of the original Home Medication information: patient The following Medications were given to the patient in the Emergency Department: GI COCKTAIL WHITE [PO] PO 30 mL, administered: 06/16/2016 10:41:00 AM Morphine [IVP] IVP 4 mg, administered: 06/16/2016 2:08:00 PM The following Medications were prescribed to the patient: Zofran (orally disintegrating tablets) 4 mg: take 1 orally every 8 hours as needed for nausea and vomiting. Dispense ten (10). No refill. Substitution is permissible. -- Олег Moran Dr. Oxycodone 5 mg tablets: take 1 orally every 6 hours as needed for pain. Dispense fifteen (15). No refill. -- Олег Moran Dr. Potassium Chloride 20 mEq: take 1 orally every 12 hours - Dispense thirty (30) No refills. -- Олег Moran Dr.
--- NOTE | 2016-06-19 05:26 | ED MED RECONCILIATION SUMMARY ---
Patient: ROBBI KELLY Medication Reconciliation Report [facility] VisitID: [id number] [address] [place] [address] 55y, F Registration Date/Time: 06/16/2016 Weight: 61.2 kg Height/Length: 61 in. BMI: 25.5 ALLERGIES: No Known Drug Allergy The patient's Home Medications are listed below: CONTINUE TAKING THE FOLLOWING MEDICATIONS: D3 Adult Oral Lasix Oral Magnesium Oral Spironolactone Oral The source(s) of the original Home Medication information: patient The following Medications were given to the patient in the Emergency Department: GI COCKTAIL WHITE [PO] PO 30 mL, administered: 06/16/2016 10:41:00 AM Morphine [IVP] IVP 4 mg, administered: 06/16/2016 2:08:00 PM The following Medications were prescribed to the patient: Zofran (orally disintegrating tablets) 4 mg: take 1 orally every 8 hours as needed for nausea and vomiting. Dispense ten (10). No refill. Substitution is permissible. -- Олег Moran Dr. Oxycodone 5 mg tablets: take 1 orally every 6 hours as needed for pain. Dispense fifteen (15). No refill. -- Олег Moran Dr. Potassium Chloride 20 mEq: take 1 orally every 12 hours - Dispense thirty (30) No refills. -- Олег Moran Dr.
== END 2016-06-16 15:02 | disposition home or self-care (01) ==
LOC: ED SRH 10:02
DX: R10.13 Epigastric pain (principal); R11.2 Nausea with vomiting, unspecified; R07.89 Other chest pain; E87.6 Hypokalemia; Z79.899 Other long term (current) drug therapy
CPT/HCPCS: 90004; 90100; 90616; 92760; 92761; 92762; 92763; 92764; 92765; 92766; 92767; 94060; 95059